=== PATIENT | female | born 1950 | race Caucasian/White ===

== ENCOUNTER → 2017-01-05 | Outpatient (CLI) | payer MEDICARE, OTHER | LOC: MAMO 12-30 09:40 → CT 01-03 09:30 → MAMO 08:39 → CT 09:30 | DX: Z12.31 Encounter for screening mammogram for malignant neoplasm of breast (principal); Z00.00 Encounter for general adult medical examination without abnormal findings; R10.9 Unspecified abdominal pain; K59.00 Constipation, unspecified | CPT/HCPCS: G0202 ==

== ENCOUNTER 2017-01-17 06:54 | Emergency (ER) | payer MEDICARE, OTHER | END 2017-01-17 08:20 | disposition home or self-care (01) | LOC: ER1 06:54 | DX: K04.7 Periapical abscess without sinus (principal); I10 Essential (primary) hypertension; E78.5 Hyperlipidemia, unspecified; Z79.899 Other long term (current) drug therapy; Z88.2 Allergy status to sulfonamides | CPT/HCPCS: 99282 ==

== ENCOUNTER 2020-11-11 11:35 | Emergency (ER) | payer MEDICARE, OTHER ==
[~2020-11-11 11:35] MED LIST: AMLODIPINE-BEN1 EAC1 PO; CLINORIL 200MG200 MG PO; CYCLOBENZAPRINE5 MG PO; EFFEXOR XR150 MG PO; FLAGYL500 MG PO; IBUPROFEN800 MG PO; LEVAQUIN750 MG PO; NORCO 5-325 TA1 EACH PO; OMEPRAZOLE20 MG PO; PERCOCET 5-3251 EACH PO; PREDNISONE20 MG PO; SYNTHROID25 MCG PO; ZOCOR40 MG PO; [UNRECOGNIZED DRUG - CODE]
[2020-11-11 14:06] LABS: RED BLOOD COUNT 5.21 M/UL (4.00-5.10); WHITE BLOOD COUNT 4.2 K/UL (4.5-11.0)
[2020-11-11 14:20] LABS: BUN/CREATININE RATIO 34 (0-10)
[2020-11-11] MEDS ORDERED: TESSALON PERLE100 MG PO (15:34)
== END 2020-11-11 17:30 | disposition home or self-care (01) ==
LOC: ER1 11:35
DX: U07.1 COVID-19 (principal); J12.82 Pneumonia due to coronavirus disease 2019; K21.9 Gastro-esophageal reflux disease without esophagitis; I10 Essential (primary) hypertension; Z88.2 Allergy status to sulfonamides; Z23 Encounter for immunization
CPT/HCPCS: 71045; 80053; 85025; 93005; 96374; 99284; J2405; J7030; M0239

== ENCOUNTER 2021-06-03 14:17 | Emergency (ER) | payer MEDICARE, OTHER ==
[~2021-06-03 14:17] MED LIST changes: +TESSALON PERLE100 MG PO
[2021-06-03 14:59] LABS: HEMOGLOBIN 13.4 gm/dl (12.3-15.3); RED BLOOD COUNT 4.54 M/UL (4.00-5.10); WHITE BLOOD COUNT 8.4 K/UL (4.5-11.0)
[2021-06-03 15:39] LABS: BUN/CREATININE RATIO 26 (0-10)
[2021-06-03] MEDS ORDERED: CEFUROXIME500 MG PO (16:31)
[2021-06-03] MEDS ORDERED: ZOFRAN4 MG PO (16:31)
== END 2021-06-03 16:43 | disposition home or self-care (01) ==
LOC: ER1 14:17
DX: N39.0 Urinary tract infection, site not specified (principal); E86.0 Dehydration; J32.0 Chronic maxillary sinusitis; Z20.822 Contact with and (suspected) exposure to COVID-19
CPT/HCPCS: 70450; 71045; 80053; 81001; 82550; 82553; 83690; 83874; 84484; 85025; 85652; 86140; 87086; 93005; 96374; 99285; J2405; J7030; U0002

== ENCOUNTER → 2021-07-02 | Day surgery (SDC) | payer MEDICARE, OTHER ==
[~2021-07-02] MED LIST changes: +CEFUROXIME500 MG PO; +HYDROXYZINE PAM25 MG PO; +MECLIZINE HCL25 MG PO; +MOBIC7.5 MG PO; +MYRBETRIQ25 MG PO; +PROBIOTIC1 EAC2 PO; +ZOFRAN4 MG PO
== END | disposition home or self-care (01) ==
LOC: OR 07:29
DX: Z12.11 Encounter for screening for malignant neoplasm of colon (principal); E03.9 Hypothyroidism, unspecified; I10 Essential (primary) hypertension; F32.A Depression, unspecified; K21.9 Gastro-esophageal reflux disease without esophagitis; E78.2 Mixed hyperlipidemia; G47.33 Obstructive sleep apnea (adult) (pediatric); G25.81 Restless legs syndrome; Z86.010 Personal history of colon polyps; Z88.2 Allergy status to sulfonamides; Z79.899 Other long term (current) drug therapy
CPT/HCPCS: J2704; J7030

== ENCOUNTER → 2022-03-24 | Outpatient (CLI) | payer MEDICARE, OTHER | LOC: ECHO 11:56 → NM 13:00 | DX: I10 Essential (primary) hypertension (principal); R07.89 Other chest pain; R06.02 Shortness of breath; I08.1 Rheumatic disorders of both mitral and tricuspid valves | CPT/HCPCS: ECHO; 78452; 93017; 93306; A9502 ==

== ENCOUNTER → 2022-03-28 | Outpatient (CLI) | payer MEDICARE, OTHER | LOC: HEART 5 13:30 | DX: R07.89 Other chest pain (principal); I47.1 Supraventricular tachycardia; R06.02 Shortness of breath ==